=== PATIENT | male | born 1995 | race Caucasian/White ===

== ENCOUNTER 2019-12-25 05:55 | Emergency (ER) | payer SELFPAY ==
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
[2019-12-25] MEDS ORDERED: Sodium Chloride 0.9% 1000 ML 1,000 ML IV STA (07:43)
[2019-12-25 07:45] VITALS: O2SAT 100
[2019-12-25] MEDS ORDERED: Sodium Chloride 0.9% 1000 ML 1,000 ML ONE (07:49)
[2019-12-25 07:51] LABS: Absolute Neutrophil Ct (ANC) 6.71 (1.4-6.9); BASOPHIL % 0.3 % (0.0-0.4); Basophil (Absolute #) 0.03 (0-0.4); Eosinophil % 1.5 % (0.00-5.0); Eosinophil (Absolute #) 0.13 (0-0.5); Hematocrit 39.5 % (42-50); Hemoglobin 13.5 gm/dl (12.5-18.0); INR 1.17 (0.8-3.0); Lymphocyte (Absolute #) 1.28 (1.0-4.6); Lymphocytes % 14.6 % (24.0-44.0); Mean Cell Volume 90.2 fl (78-100); Mean Corpuscular Hemoglobin 30.8 pg (26-32); Mean Corpuscular Hgb Concent. 34.2 g/dl (32-36); Mean Platelet Volume 10.5 fl (7.5-11.0); Monocytes % 6.9 % (0.0-12.0); Neutrophil % 76.7 % (36.0-66.0); PROTIME 13.3 SECONDS (8.83-12.87); Platelet Count 199 K/mm3 (150-450); Red Blood Count 4.38 M/mm3 (4.1-5.6); Red Cell Distribution Width 12.8 % (11.5-14.0); White Blood Count 8.8 K/mm3 (4.0-10.5)
[2019-12-25 07:53] LABS: Appearance CLEAR (CLEAR); Bilirubin NEGATIVE (NEGATIVE); Blood NEGATIVE Ery/ul (0-5); Glucose NEGATIVE (NEGATIVE); Ketones NEGATIVE (NEGATIVE); Leukocyte Esterase NEGATIVE (NEGATIVE); Mucus SLIGHT /HPF (NEGATIVE); Nitrite NEGATIVE (NEGATIVE); Protein,Urine Dip NEGATIVE (Negative); Specific Gravity 1.003 (1.005-1.025); Urobilinogen NEGATIVE mg/dL (0-1)
[2019-12-25 07:55] LABS: ALBUMIN 4.5 g/dL (3.5-5.0); ALKALINE PHOSPHATASE 63 U/L (38-126); ANION GAP 10.5 MEQ/L (5-15); BLOOD UREA NITROGEN 17 mg/dL (9-20); CHLORIDE 104 mmol/L (98-107); Calcium 9.5 mg/dL (8.4-10.2); Carbon Dioxide 30 mmol/L (22-30); Glucose 104 mg/dL (74-106); LIPASE 46 U/L (23-300); Potassium 3.3 mmol/L (3.5-5.1); SGOT/AST 73 U/L (17-59); SGPT/ALT 51 U/L (0-50); SODIUM 141 mmol/L (137-145); Total Protein 7.7 g/dL (6.3-8.2)
[2019-12-25 07:55] LABS: Amphetamine,Urine NEGATIVE (NEGATIVE); Barbiturate,Urine NEGATIVE (NEGATIVE); Benzodiazepine,Urine NEGATIVE (NEGATIVE); Cocaine,Urine NEGATIVE (NEGATIVE); Methadone,Urine NEGATIVE (NEGATIVE); Opiate,Urine NEGATIVE (NEGATIVE); PCP,Urine NEGATIVE (NEGATIVE); THC,Urine NEGATIVE (NEGATIVE)
[2019-12-25] MEDS ORDERED: PYRIDIUM 200 MG ONE (08:37)
[2019-12-25] MEDS ORDERED: NORCO 5/325 MG ONE (08:37)
[2019-12-25] MEDS ORDERED: Klor Con 10 MEQ PO ONE ×2 (09:06→09:08)
[2019-12-25] MEDS ORDERED: Hydromorphone 1 mg/ml Ampule IV ONE (09:09)
[2019-12-25] MEDS ORDERED: Hydromorphone 1 mg/ml Ampule ONE (09:10)
[2019-12-25 09:42] VITALS: BP 113/60; PULSE 62
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
== END 2019-12-25 10:12 | disposition short-term general hospital (02) ==
LOC: ED 05:55
DX: J93.9 Pneumothorax, unspecified (principal); E87.6 Hypokalemia; R07.89 Other chest pain; S60.512A Abrasion of left hand, initial encounter; S60.511A Abrasion of right hand, initial encounter; S00.511A Abrasion of lip, initial encounter; S80.812A Abrasion, left lower leg, initial encounter; S80.811A Abrasion, right lower leg, initial encounter; V43.52XA Car driver injured in collision with other type car in traffic accident, initial encounter; I95.9 Hypotension, unspecified; S22.41XA Multiple fractures of ribs, right side, initial encounter for closed fracture; R18.8 Other ascites
CPT/HCPCS: 36415; 71046; 71100; 71260; 74177; 80053; 80307; 81001; 83605; 83690; 85025; 85610; 96360; 96374; 99285; 99291; J1170; A9270-GY; G0480

== ENCOUNTER 2021-11-08 06:26 | Day surgery (SDC) | payer SELFPAY ==
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
[2021-11-08] MEDS ORDERED: Lactated Ringers 1,000 ML IV SCH (07:00)
[2021-11-08] MEDS ORDERED: Versed 2 MG/2 ML Injection ONE (08:37)
[2021-11-08] MEDS ORDERED: Xylocaine-Mpf 2% 5 Ml Vial ONE (08:38)
[2021-11-08] MEDS ORDERED: DIPRIVAN 200 MG/20 ML IV ONE (08:49)
[2021-11-08 09:34] VITALS: O2SAT 99
[2021-11-08 09:37] VITALS: BP 106/61; PULSE 65
--- NOTE | 2021-11-08 10:23 | OP ---
SURGERY DATE/TIME: 11/08/2021 0839 PREOPERATIVE DIAGNOSIS: Epigastric pain. POSTOPERATIVE DIAGNOSES: 1) Grade 2 gastroesophageal reflux disease. 2) No hiatal hernia. PROCEDURES: 1) EGD with biopsy for CLOtest. 2) Biopsy of esophagus. SURGEON: Yung Clarke M.D. ANESTHESIA: MAC. COMPLICATIONS: None. CONDITION: Stable. INDICATION: A patient requiring evaluation. DESCRIPTION OF PROCEDURE: Taken to endoscopy. MAC sedation provided. Excellent anesthesia level present. Scope introduced. Pharyngoesophageal junction normal. Esophagus normal down to gastroesophageal junction. There was grade 2 over 4 gastroesophageal reflux disease. There is no hiatal hernia. Mixer Operator biopsy of the esophagus taken. Fundus, body and antrum normal. Mixer Operator biopsy of the antrum taken for CLOtest. Pylorus satisfactory. Duodenal bulb satisfactory. Second portion satisfactory. Scope withdrawn looped upon itself. No additional areas of concern. Findings discussed with the family in the waiting room.
== END 2021-11-08 09:45 | disposition home or self-care (01) ==
LOC: SDC 06:26
PROVIDERS: ATTEND Surgery
DX: K21.9 Gastro-esophageal reflux disease without esophagitis (principal); R10.13 Epigastric pain
CPT/HCPCS: J2250; J2704